=== PATIENT | male | born 1960 | race Caucasian/White ===

== ENCOUNTER 2020-10-18 09:28 | Outpatient (CLI) | payer OTHER, SELFPAY ==
--- NOTE | 2020-10-18 09:45 | XRR_ITS ---
PROCEDURE INFORMATION: Exam: XR Abdomen, 1 View Exam date and time: 10/18/2020 9:45 AM Age: 60 years old Clinical indication: Condition or disease; Kidney or ureter condition; Calculus (stone) in ureter; Patient HX: Kidney stone follow up; Additional info: Ureteral stone TECHNIQUE: Imaging protocol: XR of the abdomen. Views: Frontal supine view of the abdomen. 1 View. COMPARISON: CR XR KUB [id number] 07/23/2019 7:49 AM FINDINGS: Gastrointestinal tract: Normal. No bowel dilation. Organs: No urinary calculi are seen on this study. Bones/joints: Degenerative changes are present in the spine with sclerosis and osteophytes.. XR/XR KUB [id number] IMPRESSION: No acute abnormality. No urinary calculi are seen.
== END 2020-10-18 09:29 | disposition home or self-care (01) ==
PROVIDERS: PCP Physician Assistant Medical; Visit Provider Urology
DX: N20.1 Calculus of ureter (principal)
CPT/HCPCS: 74018; 81003

== ENCOUNTER 2021-10-17 08:38 | Outpatient (CLI) | payer OTHER, SELFPAY ==
--- NOTE | 2021-10-17 09:30 | XR_ITS ---
WS: [id number] KUB, AP view, 10/17/2021 Clinical Data: urolithiasis Comparison: KUB, 10/18/2020. Findings: No abnormal intraabdominal masses or calcifications are seen. There is no dilatated small bowel or ev idence of obstruction. Degenerative change of the lumbar vertebral bodies is moderate. XR/XR KUB [id number] Impression: Negative KUB.
== END 2021-10-17 08:39 | disposition home or self-care (01) ==
LOC: RAD 08:40
PROVIDERS: PCP Physician Assistant Medical; Visit Provider Urology
DX: N20.1 Calculus of ureter (principal)
CPT/HCPCS: 74018; 81003

== ENCOUNTER → 2023-04-22 10:57 | Outpatient (BNVA) | payer OTHER, SELFPAY | PROVIDERS: PCP Physician Assistant Medical; Visit Provider Nurse Practitioner Family | DX: L57.0 Actinic keratosis (principal); L57.8 Other skin changes due to chronic exposure to nonionizing radiation; L85.3 Xerosis cutis; L81.4 Other melanin hyperpigmentation; D22.5 Melanocytic nevi of trunk; Z71.89 Other specified counseling | CPT/HCPCS: 17000; 17003; 99213 ==

== ENCOUNTER 2023-11-19 06:00 | Outpatient (RCR) | payer OTHER, SELFPAY | END 2023-11-20 23:59 | disposition home or self-care (01) | LOC: WPT 06:00 | PROVIDERS: Visit Provider Family Medicine | DX: M54.50 Low back pain, unspecified (principal) | CPT/HCPCS: 97110; 97112; 97161; 97530 ==

== ENCOUNTER 2023-11-21 06:00 | Outpatient (RCR) | payer OTHER, SELFPAY | END 2023-12-19 23:59 | disposition home or self-care (01) | LOC: WPT 06:00 | PROVIDERS: Visit Provider Family Medicine | DX: M54.50 Low back pain, unspecified (principal) | CPT/HCPCS: 97110; 97112; 97530 ==

== ENCOUNTER 2023-12-20 06:00 | Outpatient (RCR) | payer OTHER, SELFPAY | END 2024-01-19 23:59 | disposition home or self-care (01) | LOC: WPT 06:00 | PROVIDERS: Visit Provider Family Medicine | DX: M54.50 Low back pain, unspecified (principal) | CPT/HCPCS: 97110; 97112; 97530 ==

== ENCOUNTER → 2023-12-25 15:00 | Outpatient (BNVA) | payer OTHER, SELFPAY | PROVIDERS: Referring Provider Family Medicine; Visit Provider Dermatology | DX: M72.0 Palmar fascial fibromatosis [Dupuytren] (principal); L20.89 Other atopic dermatitis; L82.1 Other seborrheic keratosis; L72.0 Epidermal cyst | CPT/HCPCS: 99213 ==

== ENCOUNTER → 2024-02-20 08:18 | Outpatient (BNVA) | payer OTHER, SELFPAY | PROVIDERS: Referring Provider Dermatology; Visit Provider Student in an Organized Health Care Education/Training Program | DX: M72.0 Palmar fascial fibromatosis [Dupuytren] (principal); M79.643 Pain in unspecified hand; M65.342 Trigger finger, left ring finger | CPT/HCPCS: 73130; 99203 ==

== ENCOUNTER → 2024-04-22 10:07 | Outpatient (BNVA) | payer OTHER, SELFPAY | PROVIDERS: Visit Provider Nurse Practitioner Family | DX: L57.0 Actinic keratosis (principal); L82.1 Other seborrheic keratosis; D22.5 Melanocytic nevi of trunk; L81.4 Other melanin hyperpigmentation; L57.8 Other skin changes due to chronic exposure to nonionizing radiation; L20.89 Other atopic dermatitis | CPT/HCPCS: 17000; 99214 ==

== ENCOUNTER → 2025-06-01 14:26 | Outpatient (BNVA) | payer OTHER, SELFPAY | PROVIDERS: Visit Provider Nurse Practitioner Family | DX: L72.0 Epidermal cyst (principal); L82.1 Other seborrheic keratosis; D22.5 Melanocytic nevi of trunk; L81.4 Other melanin hyperpigmentation; L57.8 Other skin changes due to chronic exposure to nonionizing radiation; D48.5 Neoplasm of uncertain behavior of skin; L57.0 Actinic keratosis | CPT/HCPCS: 10060; 11102; 17000; 99213 ==